=== PATIENT | female | born 1955 | race Caucasian/White ===

== ENCOUNTER 2017-01-28 23:36 | Emergency (ER) | payer SELFPAY ==
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
[2017-01-29 02:08] VITALS: BP 155/86
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
== END 2017-01-29 02:07 | disposition home or self-care (01) ==
LOC: ED 23:36
DX: S09.90XA Unspecified injury of head, initial encounter (principal); S19.9XXA Unspecified injury of neck, initial encounter; R51 Headache; M54.2 Cervicalgia; F17.210 Nicotine dependence, cigarettes, uncomplicated; V49.9XXA Car occupant (driver) (passenger) injured in unspecified traffic accident, initial encounter; Y93.9 Activity, unspecified; Y92.9 Unspecified place or not applicable
CPT/HCPCS: 70450; 72125; 99282

== ENCOUNTER 2017-02-01 05:32 | Emergency (ER) | payer OTHER ==
[2017-02-01] MEDS ORDERED: Morphine INJ* 4 MG/ML 1 ML SYRINGE SUBCUT ONE (06:40)
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
[2017-02-01] MEDS ORDERED: Ondansetron ODT TAB* 4 MG PO ONE (08:23)
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
[2017-02-01 08:57] VITALS: BP 164/141
== END 2017-02-01 08:57 | disposition home or self-care (01) ==
LOC: ED 05:32
DX: S22.42XA Multiple fractures of ribs, left side, initial encounter for closed fracture (principal); V89.2XXA Person injured in unspecified motor-vehicle accident, traffic, initial encounter; Y92.481 Parking lot as the place of occurrence of the external cause; J43.9 Emphysema, unspecified; K21.9 Gastro-esophageal reflux disease without esophagitis; F17.210 Nicotine dependence, cigarettes, uncomplicated
CPT/HCPCS: 71250; 96372; 99283; J2270